=== PATIENT | female | born 1990 | race African-American/Black ===

== ENCOUNTER 2018-12-11 06:56 | Observation (INO) | payer OTHER ==
[~2018-12-11] VITALS: Ht 165.1 cm; Wt 85.7 kg
--- NOTE | ~2018-12-11 | P ---
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 HISTORY: The patient is a 28-year-old female with a history of evidence of Fordk-Gdqzmdhba-Rfecl on a 12-lead EKG and frequent palpitations and lightheadedness who is here for EP study and ablation. PROCEDURES PERFORMED: 1. SVT ablation, CPT code 44139. 2. Program stimulation and pacing after IV drug infusion, CPT code 00819. 3. EP with left atrial pacing and recording, CPT code 55075. 4. Intracardiac echo, CPT code 05775. 5. 3D mapping, CPT code 83692. 6. Arterial line placement, CPT code 78806. ANESTHESIA: The patient underwent MAC anesthesia with no anesthesia related complications. DESCRIPTION OF PROCEDURE: The patient underwent informed consent. We discussed the details of the procedure including the risks, which include but not limited to bleeding, vascular damage, stroke, ID as well as damage to the eek conduction system requiring permanent pacemaker. She understood these risks and is willing to proceed. The patient was brought to the EP laboratory in a fasting and sedated state and prepped and draped in a sterile fashion. I obtained access to the bilateral femoral veins after injecting lidocaine. I placed a 6-[place] short sheath in the right femoral vein and a 7-[place] short sheath in the left femoral vein. Next, under fluoroscopy, I placed 3 quadripolar catheters at the HRA, His, and RV positions and decapolar catheter into the coronary sinus. At baseline, the patient was in sinus rhythm with a sinus cycle length of 810 milliseconds, VA interval 123 milliseconds, QRS duration 135 milliseconds, ____ 385 milliseconds, AH interval of 123 milliseconds and an HV interval of 0 milliseconds. Ventricular pacing was performed and VA block was noted at 320 milliseconds. The earliest atrial activation came at CS 5 and 6. Next, single atrial extrastimuli were delivered from the ventricle and the pathway ERP was noted at 310 milliseconds at a [address] cycle length, which resulted in midline VA conduction. Ventricular ERP was noted at 220 milliseconds at a [address] cycle length. Next with atrial pacing, there was clear evidence of manifest preexcitation with right bundle branch block [facility] [address] [place] [address] PROCEDURE REPORT Name: RIZWANMARGIE GWYN Room #: 211-P MARGARET Isbell M.RLinn#: [id number] Admission: 12/11/18 ������������������ Attend Phys: Lobito Rosales MD Discharge: 12/12/18 ������������������ Date of : [birth year] Report #: [id number] morphology in lead V1 and positive concordance, activations in the inferior leads was superiorly directed. With atrial burst pacing, accessory pathway would block at around 360 milliseconds and the QRS duration would narrow. Atrial ERP was noted at 290 milliseconds at a [address] cycle length. No SVT was induced. Isoproterenol infusion was initiated at 2 mcg per minute and full effects of isoproterenol antegrade conduction via the pathway blocked at 230 milliseconds consistent with a potentially dangerous pathway. AV mely ERP was noted at 210 milliseconds at [address] cycle length. VA block via the pathway was 230 milliseconds. A retrograde pathway ERP was noted at 230 milliseconds at a [address] cycle length. I then performed additional testing on 1 mcg per minute of isoproterenol and then turned off the isoproterenol. I could never clearly induce SVT, but clearly the patient had a pathway that could potentially be a proarrhythmic and therefore warrants ablation. I placed a SmartTouch ThermoCool ablation catheter into the right atrium. I quickly created an activation map of the earliest atrial activity while pacing the ventricle. It appeared that the earliest signal was arising from around CS 56. It appeared that this was likely a left-sided pathway and therefore, the patient was prepped for a transseptal. I placed an additional sheath into the left vein and placed an ice catheter into the right atrium. Using a SL1 sheath and a Patterson needle, a transseptal was performed and I was able to get the guidewire into the left superior pulmonary vein, but I could not advance my SL1 sheath into the left atrium. Therefore, I did utilize a Powerflex Pro 6 mm x 4 cm balloon and I predilated the interatrial septum and then I was able to advance my SL1 sheath in the left atrium. I then placed the ablation catheter into the left atrium and created a detailed 3D geometry of the left atrium and created an activation map of the pathway. I therefore performed 3 initial ablation lesions at the area that appeared to be the earliest atrial signal, but this did not result in termination of the tachycardia. I therefore moved my ablation catheter slightly more medially and I performed an additional ablation lesion at this site and within 4 seconds, the pathway was gone. POST-ABLATION TESTING: Post-ablation, atrial burst pacing was performed and AV block was noted at 290 milliseconds. Atrial ERP was noted at 220 milliseconds at a [address] cycle length. This was all via the AV node conduction. Isoproterenol infusion was initiated at 1 mcg per minute and AV block was noted 230 milliseconds. AV mely ERP was noted at 230 milliseconds at [address] cycle length. We monitored for over 30 minutes and clearly there was no return of the accessory pathway. Isoproterenol was turned off and AV block was noted at 250 milliseconds. VA block was 300 milliseconds, which was both midline and decremental. Ventricular ERP was 190 milliseconds at a [address] cycle length. Again, this was midline and decremental. Post-ablation, the patient was in sinus rhythm with sinus cycle length of 610 milliseconds, VA interval 150 milliseconds, QRS duration now is 65 milliseconds, QT interval was 320 milliseconds. As such, all catheters and sheaths were pulled. Hemostasis was obtained and the patient awoke [facility] [address] [place] [address] PROCEDURE REPORT Name: MARGIE ASTORGA GWYN Room #: 211-P [facility] Sukhi Gonsales#: [id number] Admission: 12/11/18 ������������������ Attend Phys: Lobito Rosales MD Discharge: 12/12/18 ������������������ Date of : [birth year] Report #: [id number] neurologically and hemodynamically intact with no complications and no significant bleeding. CONCLUSIONS: 1. 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 2. Normal SA mely function. 3. Normal AV mely function. 4. Normal His-Purkinje function. 5. No other inducible arrhythmias on or off isoproterenol. ��������������������������������������������� ���������������������������������������� By: ��������������������������������������������� 1254 1755 Lobito Rosales MD /jose
[2018-12-11 07:29] LABS: ABSOLUTE NEUTROPHILS 2.5 thou/uL (1.4-8.2); BASOPHILS 0.9 % (0.0-2.0); EOSINOPHILS 1.6 % (0.0-3.0); HEMATOCRIT 38.8 % (37.0-47.0); HEMOGLOBIN 12.7 gm/dL (12.0-15.0); LYMPHOCYTES 35.3 % (24.0-44.0); MCH 26.9 pg (26.0-34.0); MCHC 32.8 g/dL (28.0-37.0); MONOCYTES 11.1 % (1.0-8.0); PLATELET COUNT 382 thou/uL (150-400); POLYS 51.1 % (36.0-66.0); RBC 4.73 mil/uL (4.20-5.00); RDW 14.4 % (10.5-14.5); WBC 4.8 thou/uL (4.0-11.0)
[2018-12-11 07:41] LABS: APTT 29.4 Seconds (24.5-32.8); CALCIUM 9.7 mg/dL (8.5-10.1); CREATININE 0.9 mg/dL (0.6-1.0); POTASSIUM 3.6 mmol/L (3.5-5.1); PROTIME 10.6 Seconds (9.3-11.4)
[2018-12-11 07:42] VITALS: BP 150/85
[2018-12-11 07:46] LABS: ALBUMIN 4.1 g/dL (3.4-5.0); TOTAL BILIRUBIN 0.3 mg/dL (<0.1-1.0); TOTAL PROTEIN 9.5 g/dL (6.4-8.2)
[2018-12-11] MEDS ORDERED: KEPPRA 500 MG500 M1 PO ×2 (08:00)
[2018-12-11] MEDS ORDERED: VITAMIN D5000 UNIT PO ×2 (18:05)
[2018-12-11] MEDS ORDERED: MAGOX 400400 MG PO ×2 (18:06)
--- NOTE | 2018-12-11 18:41 | NUR ---
TO UNIT AT 1452. B GROIN SITES ARE CDI, NO S/S OF HEMATOMA. +1 PULSES, EXTREMITIES WARM AND DRY. SR ON MONITOR. NO COMPLAINTS OF PAIN OR NAUSEA. FEELS THE NEED TO VOID AND PLACED ON BEDPAN WITH NO RESULTS. THE SECOND TIME SHE VOIDED 500CC OF CLEAR YELLOW URINE. BEDREST UNTIL 1945.
[2018-12-11 20:00] VITALS: BP 130/79
[2018-12-11 20:04] VITALS: BP 130/79
[2018-12-12 00:40] VITALS: BP 111/79
--- NOTE | 2018-12-12 02:08 | NUR ---
ASSESSMENT DOCUMENTED.PT RESTING IN NO ACUTE DISTRESS.A/OX4.S/P ABLATION D/T SVT.BEEN ON SINUS RHYTHM ON MONITOR.VSS.UP TO BR W/O DISTRESS.EFRAIN GROIN INTACT,NO HEMATOMA OR ACTIVE BLEEDING.PT DENIES PAIN.POC MAY DISCHARGE TO HOME TODAY.
[2018-12-12 04:21] VITALS: BP 111/79
[2018-12-12 05:51] VITALS: BP 119/80
[2018-12-12 07:38] VITALS: BP 119/81
[2018-12-12 09:08] VITALS: BP 111/79
[2018-12-12 09:33] VITALS: BP 111/79
--- NOTE | 2018-12-12 10:32 | NUR ---
ASSUMED CARE AT 0700, SHIFT ASSESSMENT DONE, VSS. CATH SITES ARE SOFT TO TUCH, NO BLEEDING OR HEMATOMA NOTED. DENIES NAUSEA, VOMITING, PAIN. EKG ORDERED THIS AM. RESULT IS NORMAL. DISCHARGE ORDER RECEIVED, PAPER WORK GIVEN, PERIPHERAL IV WAS TAKEN OUT.
--- NOTE | 2018-12-13 08:05 | EKG ---
[address] [address] ELECTROCARDIOGRAM REPORT Name: MARGIE ASTORGA Room #: 211-[facility]..#: [id number] ������������������ Admission: 12/11/18 ������������������ Attend Phys: Lobito Rosales MD Discharge: 12/12/18 ������������������ Date of : [birth year] Report #: [id number] ����������������������������������������������������������������� [id number] THIS REPORT FOR: //name// [facility] Test Date: 2018-12-12 Test Time: 09:13:23 Pat Name: MARGIE ASTORGA Department: Room: 211 Gender: F Evp Operations: Florentino COONEY : 1990 Requested By: Lobito Rosales Order Number: [id number] MD: Mauricio Hansen Measurements Intervals [place]cdonald Rate: 74 P: -2 AR: 139 QRS: 57 QRSD: 82 T: -23 QT: 409 QTc: 454 Interpretive Statements Sinus rhythm Minimal, diffuse ST elevation, consider early repolarization Nonspecific T abnormalities, inferior leads No previous ECG available for comparison Electronically Signed On 12-13-2018 8:04:54 CDT by Mauricio Hansen [email or web address] ��������������������������������������������� <ELECTRONICALLY SIGNED> ���������������������������������������� By: Mauricio Hansen MD, [facility] ��������������������������������������������� 12/13/18 0804 2 2 Mauricio Hansen MD, [facility] /EPI
--- NOTE | 2018-12-19 16:48 | D ---
[facility] [place] [address] DISCHARGE SUMMARY Name: MARGIE ASTORGA Room #: 211-P [facility] M.R.#: [id number] Admission: 12/11/18 ������������������ Attend Phys: Lobito Rosales MD Discharge: 12/12/18 ������������������ Date of : [birth year] Report #: [id number] THIS REPORT FOR: //name// CC: Vicente Rosales DATE OF SERVICE: 12/12/2018 DISCHARGE DIAGNOSIS: Cqkqt-Qgvoxqdte-Yvgbj syndrome. PROCEDURES PERFORMED: SVT ablation. HISTORY OF PRESENT ILLNESS: The patient is a 28-year-old with history of Aunoo-Pqmwohcmy-Vulvl syndrome with palpitations and presyncopal symptoms here for SVT ablation. 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 During the EP study, I could not induce SVT despite isoproterenol therapy; however, I could demonstrate that her conduction via the accessory pathway blocked at around 240 milliseconds, suggestive that this was a high-risk pathway. This was successfully ablated and monitored for about an hour and did not return. HOSPITAL COURSE: The patient was monitored in the CCU overnight and did well. On the day of discharge, she denied any chest pain, shortness of breath or groin discomfort. PHYSICAL EXAMINATION: HEART: Regular rate and rhythm. LUNGS: Clear bilaterally. ABDOMEN: Soft, nontender. EXTREMITIES: No clubbing, cyanosis, edema. GROINS: No hematoma or bruising. Her telemetry revealed no arrhythmias and there was no evidence of recurrence of her accessory pathway. As such, she was deemed stable for discharge home. She is instructed to take aspirin 81 mg a day and she will follow up with my nurse practitioner in two weeks and see me back in three months. ��������������������������������������������� <ELECTRONICALLY SIGNED> ���������������������������������������� By: Lobito Rosales MD ��������������������������������������������� 12/19/18 1648 0822 1216 Lobito Rosales MD /nt
== END 2018-12-12 10:57 | disposition home or self-care (01) ==
LOC: CATH 06:56 → 2N 14:51 → ENTRNSPT 12-12 10:38 → EDTRNSPTSTS 12-12 10:41 → 2N 12-12 10:57
PROVIDERS: ADMIT Internal Medicine Cardiovascular Disease
DX: I45.6 Pre-excitation syndrome (principal)
CPT/HCPCS: 62110; 62900; 70005

== ENCOUNTER → 2018-12-28 | Outpatient (CLI) | payer OTHER ==
[~2018-12-28] MED LIST: KEPPRA 500 MG500 M1 PO; MAGOX 400400 MG PO; VITAMIN D5000 UNIT PO
== END ==
LOC: MRI 08:39
DX: R25.3 Fasciculation (principal); M12.88 Other specific arthropathies, not elsewhere classified, other specified site; M54.5 Low back pain; M54.2 Cervicalgia; G89.29 Other chronic pain

== ENCOUNTER 2019-01-04 19:20 | Emergency (ER) | payer OTHER ==
[~2019-01-04] VITALS: Ht 162.6 cm; Wt 80.7 kg
[2019-01-04 20:35] LABS: URINE BILIRUBIN NEGATIVE (Negative); URINE BLOOD NEGATIVE (Negative); URINE CLARITY CLEAR; URINE COLOR YELLOW; URINE GLUCOSE-RANDOM* NEGATIVE (Negative); URINE KETONES NEGATIVE (Negative); URINE LEUKOCYTES-REFLEX NEGATIVE (Negative); URINE NITRITE-REFLEX NEGATIVE (Negative); URINE PROTEIN (DIPSTICK) NEGATIVE (Negative); URINE UROBILINOGEN 0.2 E.U./dl (0.2-1.0)
[2019-01-04 20:50] LABS: HEMATOCRIT 34.9 % (37.0-47.0); HEMOGLOBIN 11.7 gm/dL (12.0-15.0); MCHC 33.6 g/dL (28.0-37.0); MCV 80.5 fL (80.0-100.0); PLATELET COUNT 412 thou/uL (150-400); RBC 4.33 mil/uL (4.20-5.00); RDW 14.3 % (10.5-14.5); WBC 6.9 thou/uL (4.0-11.0)
[2019-01-04 20:58] LABS: CALCIUM 8.8 mg/dL (8.5-10.1); CREATININE 1.1 mg/dL (0.6-1.0); POTASSIUM 4.2 mmol/L (3.5-5.1)
[2019-01-04 21:04] LABS: ALBUMIN 3.7 g/dL (3.4-5.0); TOTAL BILIRUBIN 0.2 mg/dL (<0.1-1.0); TOTAL PROTEIN 8.5 g/dL (6.4-8.2)
[2019-01-04 21:22] LABS: ABSOLUTE NEUTROPHILS 3.5 thou/uL (1.4-8.2)
[2019-01-04 21:23] LABS: ANISOCYTOSIS 1+; PLATELET ESTIMATE INCREASED; POIKILOCYTOSIS 1+; POLYCHROMASIA 1+
[2019-01-04 21:31] VITALS: BP 119/82
--- NOTE | 2019-01-05 16:05 | EKG ---
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: : 1990 Requested By: James Dickinson Order Number: [id number] MD: Mauricio Hansen Measurements Intervals [place] Rate: 68 P: 22 NV: 143 QRS: 48 QRSD: 78 T: 23 QT: 390 QTc: 415 Interpretive Statements Sinus rhythm ST elev, probable normal early repol pattern Compared to ECG 12/12/2018 09:13:23 Inferior T-wave abnormality no longer present Electronically Signed On 01-05-2019 16:05:10 CDT by Mauricio Hansen [email or web address] ��������������������������������������������� <ELECTRONICALLY SIGNED> ���������������������������������������� By: Mauricio Hansen MD, [facility] ��������������������������������������������� 01/05/19 1605 20 20 Mauricio Hansen MD, [facility] /EPI
== END 2019-01-04 21:32 | disposition home or self-care (01) ==
LOC: ER 19:20
PROVIDERS: Emergency Medicine
DX: M79.605 Pain in left leg (principal); Z90.49 Acquired absence of other specified parts of digestive tract

== ENCOUNTER → 2019-02-08 | Outpatient (CLI) | payer OTHER | LOC: ULTRA 11:10 | DX: E04.1 Nontoxic single thyroid nodule (principal) ==